=== PATIENT | female | born 1995 | race Caucasian/White ===

== ENCOUNTER 2019-01-20 09:51 | Emergency (ER) | payer SELFPAY ==
[~2019-01-20] VITALS: Ht 157.5 cm; Wt 102.2 kg
[2019-01-20 09:54] VITALS: BP 144/75; PULSE 73; RESP 18; Ht 157.5 cm; Wt 102.2 kg
== END 2019-01-20 12:00 | disposition left against medical advice (07) ==
LOC: FTE 09:51
DX: Z53.21 Procedure and treatment not carried out due to patient leaving prior to being seen by health care provider (principal)